=== PATIENT | female | born 1940 | race Caucasian/White ===

== ENCOUNTER 2018-06-30 06:24 | Inpatient (IN) | payer OTHER, SELFPAY ==
[2018-06-16 09:35] VITALS: BMI 29.6
[2018-06-30] VITALS (16 sets, daily range): BP systolic 102–150; BP diastolic 47–84; PULSE 51–71; RESP 14–20; TEMP 35.8–36.6; O2SAT 89–99; BMI 30.9
--- NOTE | 2018-06-30 06:00 | DI.RAD.S_ITS ---
PROCEDURE: XR PELVIS 1-2V INDICATIONS: post operative left hip TECHNIQUE: Single view(s) of the pelvis acquired. COMPARISON: None. FINDINGS: Bones: Status post left hip arthroplasty in expected postoperative alignment. Right hip arthroplasty also incidentally noted No fractures or dislocations. No suspicious bony lesions. Soft tissues: Visualized bowel gas pattern is normal. No suspicious soft tissue calcifications. Postsurgical left hip changes changes. Vascular calcifications are noted. IMPRESSION: Expected postoperative appearance of left hip arthroplasty. Dictated by: Dennis Blackwood M.D. on 06/30/2018 at 16:36 Approved by: Dennis Blackwood M.D. on 06/30/2018 at 16:37
[2018-06-30] MEDS: MELOXICAM 7.5 MG TABLET 15 MG PO (07:10)
[2018-06-30] MEDS: ACETAMINOPHEN 325 MG TABLET 975 MG PO ×3 (07:10→20:15)
[2018-06-30] MEDS: LACTATED RINGERS 1,000 ML 42 ML IV (07:15)
--- NOTE | 2018-06-30 07:57 | PM.PREOP ---
Pre-operative Note Interval Note Pre-op Check: Yes History & Physical Reviewed by Physician Changes: No
--- NOTE | 2018-06-30 08:37 | SUR.OPER ---
Lateral on padded OR bed. Gel axillary roll. Arms secured on padded armboard with pillow supporting top arm. Padded hip positioner braces x4 - anterior and posterior chest and pelvis. Additional gel pad used anterior pelvis. Gel pad under bottom leg from knee to foot and secured with tape over sheet.
[2018-06-30] MEDS: CEFAZOLIN 1 GM VIAL IV (08:46)
--- NOTE | 2018-06-30 10:06 | PM.OP.1 ---
Operative Date/Time/Diagnoses Date of procedure: 06/30/18 Time of procedure: 10:06 Pre-op diagnosis: Left hip degenerative joint disease Post-op diagnosis: same Procedure & Clinicians Procedure: Left total hip arthroplasty (CPT code 25300 with assistant secretary) Same procedure as scheduled: Yes Indications: Patient is an 78-year-old female with severe left hip DJD. The patient has pain with activities and at rest, limited ambulation and activity tolerance, difficulties with ADLs, and failure of conservative treatment. We have discussed the nature of condition, treatment options, risks and benefits, and patient elects to proceed with total hip arthroplasty and gives informed consent. Surgeon: Ajith Watters Graduate Student Instructor: Essence Briggs Anesthesia Type: General and Spinal Operative Notes Closure Type: primary Specimen(s): none sent Implants & Drains: Acetabulum: Javier [employer]hew R3 acetabular component size 52 mm Femoral component: Javier [employer]hew Synergy stem size 12 with high offset Femoral head: 36 mm + 0 cobalt chrome Estimated Blood Loss (mL): 10 Blood products transfused: none Procedure in detail: After satisfaction induction of anesthetic, and administration of IV antibiotics, the patient was positioned in the lateral decubitus position with all bony prominences well padded and pelvic position secured using a hip appliance service supervisor positioning device. Left hip and lower extremity prepped and draped in the usual sterile fashion, 1st dose of intravenous tranexamic acid was administered, then a longitudinal incision was created centered over the greater trochanter and carried sharply through the skin and subcutaneous tissues down to the fascia bess which was divided longitudinally and retracted with a Charnley retractor. External rotators visualize, cut, tagged, and retracted posteriorly, then the capsule was cut in a T-type fashion with the corners tagged and retracted. Hip was dislocated and femoral neck cut made according to preoperative templating. Acetabular retractors then placed, and the acetabular labrum and osteophytes were excised. The acetabulum was then sequentially reamed to 51 mm with an excellent circumferential ream and fit with the trial. The trial component was removed and a permanent size 52 mm Javier and Nephew R3 acetabular component was selected, positioned, and impacted with satisfactory position and fixation achieved. Permanent liner was then inserted with the elevated lip directed posteriorly. Soft tissue then removed off the lateral femoral neck in the lateral neck was entered using a box osteotome. T-handled reamers placed down the canal followed by sequential broaching to 12 with the final broach left in place for trial reduction which demonstrated good 36 leg length, range of motion, and stability characteristics with a 36 mm +0 trial ball, however far better stability was achieved with flexion adduction and rotation with a high offset trial ball/neck combination. The trial and broach were removed, and a permanent size 12 high offset Javier and Nephew Synergy stem was selected and inserted with excellent position and fixation achieved. Another trial reduction yielded the above characteristics so the trial ball was exchanged for a permanent 36 mm +0 cobalt chrome ball. The hip was irrigated and reduced and excellent leg length range of motion and stability characteristics were achieved and maintained. The hip was copiously irrigated, and the capsule repaired with #2 Ethibond, and the piriformis was repaired back to the greater trochanter with the same. Fascia bess closed with interrupted #1 Ethibond sutures, and the subcutaneous tissues were closed in 2 layers of 0 Vicryl and 2 0 Vicryl. Skin was closed with rocael and sterile dressings applied. Second dose of tranexamic acid was administered intravenously, and the anesthetic was terminated. Complications: none Condition: stable Disposition: PACU Plan for aftercare: Patient will be admitted to the acute care enriquez, and anticipate discharge on postop day 2 with follow-up in office in 10-14 days. Outpatient physical therapy will be arranged and patient will continue to observe posterior hip precautions. Patient will continue use of postoperative Lovenox for 10 days postop.
[2018-06-30] MEDS: LACTATED RINGERS 1,000 ML 125 ML IV ×2 (11:08→20:15)
--- NOTE | 2018-06-30 12:59 | PT.IPTN ---
Current Diagnoses Unilateral primary osteoarthritis, left hip (06/30/18) Surgery Performed Operation Date: 06/30/18 07:45 Actual Procedures p Total Hip Arthroplasty(Left) - Ajith Watters MD Physical Therapy Treatment Note M3 PT-IP Subjective Start: 06/30/18 12:57 Freq: NEEDED Status: Active Protocol: Document 06/30/18 12:58 RS (Rec: 06/30/18 12:59 RS [id number]) Subjective Physical Therapy Visit Type Type Administrative Note Notes Per RN, pt's leg is still not; pt not ready to participate with therapy yet.
--- NOTE | 2018-06-30 15:27 | PC.ADMIT ---
Addendum entered by Dennis Polanco R.N. 06/30/18 15:29: Pt reported mild hallucinations (spots on ceiling moving) around lunch time. She remained pleasant, not fearful, and acknowledged that this was not real. As the day has progressed- she has denied any further visual hallucinations. She has denied pain and was able to get up to bsc with physical therapist. Verbalized understanding of hip precautions. Original Note: [address] Admission Note: The patient,Gemini Nicole,78 y/o, was given written information regarding hospital policies, unit procedures and contact persons. Patient's smoking status: Never smoker. Vital Signs - 8 hr 06/30/18 09:33 06/30/18 09:39 06/30/18 09:44 Temperature 96.8 F L Pulse Rate 68 64 68 Respiratory Rate 16 15 14 Blood Pressure 105/56 L 105/64 112/57 L Pulse Oximetry 89 L 98 99 06/30/18 09:48 06/30/18 09:53 06/30/18 09:58 Temperature 96.7 F L Pulse Rate 61 62 61 Respiratory Rate 15 15 16 Blood Pressure 108/58 L 102/56 L 104/56 L Pulse Oximetry 96 99 99 06/30/18 10:03 06/30/18 10:15 06/30/18 10:41 Temperature 96.6 F L 96.5 F L Pulse Rate 64 57 L 51 L Respiratory Rate 14 20 20 Blood Pressure 107/54 L 135/47 L 112/61 Pulse Oximetry 98 94 95 06/30/18 11:15 06/30/18 12:19 06/30/18 13:15 Temperature 96.9 F L 97.2 F L 97.8 F Pulse Rate 54 L 53 L 68 Respiratory Rate 20 18 18 Blood Pressure 141/82 H 144/71 H 145/84 H Pulse Oximetry 97 94 98 Pt admitted to ICU rm 103 at 1015 via bed. VSS. Pt is sleepy but oriented x3. Reports unable to move BLE. Pulses are present, equal bilaterally and feet are warm. Oriented to room, unit, routine. Educated to pain scale, med regimen, call light, fall risk. Call light in easy reach. Family at bedside.
--- NOTE | 2018-06-30 15:34 | PT.IIE ---
Current Diagnoses Unilateral primary osteoarthritis, left hip (06/30/18) Surgery Performed Operation Date: 06/30/18 07:45 Actual Procedures p Total Hip Arthroplasty(Left) - Ajith Watters MD Surgical History (Last Updated 06/16/18 @ 10:14 by Jacqueline Pina RN) History of arthroplasty of left knee (Acute) History of total right hip arthroplasty (Acute) Hx of tonsillectomy (Acute) S/P CABG x 3 (Acute) Status post bilateral cataract extraction (Acute) Medical History (Last Updated 06/16/18 @ 10:14 by Jacqueline Pina RN) Allergic rhinitis (Acute) Arthritis of evhyaa-wktmwnksl-nbzwokvii joint (Acute) CAD (coronary artery disease) (Acute) GERD (gastroesophageal reflux disease) (Acute) Ganglion cyst of both wrists (Acute) H/O: hysterectomy (Acute) HTN (hypertension) (Acute) Hyperlipidemia (Acute) Impaired glucose tolerance (Acute) Numbness and tingling (Acute) Osteoarthritis (Acute) Palpitations (Acute) RBBB (right bundle branch block) (Acute) Rash (Acute) Renal insufficiency (Acute) Unstable angina (Acute) Physical Therapy Inpatient Evaluation/Re-Eval M1 PT/OT-IP Prior Functional Status Start: 06/30/18 12:57 Freq: NEEDED Status: Active Protocol: Document 06/30/18 14:51 AMB (Rec: 06/30/18 14:55 AMB [email or web address]) Medical Review Prior Functional Status Medical History Reviewed Yes Mobility and Gait Ambulated with SPC Social History Household Members spouse Living Arrangements House Number of Floors (Floors) One Floor Number of Stairs To Enter/Railing? 1 small step to enter Home Environment High Toilet Walk in Shower Home Equipment Front Wheel Walker Straight Cane Bedside Commode Raised Toilet Seat Without Armrests Shower Seat without Backrest Employment Status Retired Additional Social History Comment Pt has daughter who is RN who can help as well as her M2 PT-IP Current Condition Start: 06/30/18 12:57 Freq: NEEDED Status: Active Protocol: Document 06/30/18 14:51 AMB (Rec: 06/30/18 14:55 AMB [email or web address]) Physical Therapy Current Condition Current Condition Evaluation Date 06/30/18 Treatment Diagnosis s/p L MIRA Onset Date 06/30/18 Precautions Posterior Hip Precautions No Hip Flexion > 90 degrees No Hip Internal Rotation No Hip Adduction Weight Bearing Status Weight Bearing Status Weight Bear as Tolerated M3 PT-IP Subjective Start: 06/30/18 12:57 Freq: NEEDED Status: Active Protocol: Document 06/30/18 14:51 AMB (Rec: 06/30/18 14:55 AMB [email or web address]) Subjective Physical Therapy Visit Type Type Initial Evaluation Visit Start Time 14:15 Visit Stop Time 15:00 Total Visit Minutes 45 Number of TAG WRITER Visits 0 Physical Therapy Visit Comments Patient Comments Pt is ready to urinate so she would like to get out of bed. Therapy Pain Assessment Pain When Pain Assessed During Mobility Pain Present Pain Present Pain Reported Location Left Hip Intensity 5 Scale Used Numeric (1 - 10) M4 PT-IP Mobility and Gait Start: 06/30/18 12:57 Freq: NEEDED Status: Active Protocol: Document 06/30/18 15:17 AMB (Rec: 06/30/18 15:34 AMB [email or web address]) PT-Bed Mobility Assessment Rolling Type of Rolling Roll to Right Level of Assist Minimal Assistance Supine to Sit Supine to Sit Minimal Assistance Sit to Supine Sit to Supine Minimal Assistance Scooting Scooting to Edge of Bed Standby Assistance PT-Transfer Assessment Sit to and From Stand Sit to and from Stand Standby Assistance Equipment Transfer Assistive Device Gait Belt Front Wheeled Walker Transfers Transfer Destination Bed Bedside Commode Transfer Technique Stand Step Pivot Transfer Ability Level of Assist Standby Assistance Comments Mobility Comments Pt needed extensive cueing to adhere to her precautions Gait Assessment Gait Gait Assistance Required: Contact Guard Assist Distance (Feet) 80 Able to Maintain Weight Bearing Status Yes During Gait Assistive Devices Assistive Device Front Wheeled Walker Gait Deviations General Gait Pattern Antalgic Step-to Gait Comments Gait Comments Pt tolerated gait well, but needed cueing to work towards more of a step through pattern PT-Balance Assessment Sitting Balance and Reactions Static Sitting Balance Ability Good Dynamic Sitting Balance Ability Good Standing Balance and Reactions Static Standing Balance Ability Good Dynamic Standing Balance Ability Fair M5 PT-IP Objective Assessments Start: 06/30/18 12:57 Freq: NEEDED Status: Active Protocol: Document 06/30/18 15:17 AMB (Rec: 06/30/18 15:34 AMB [email or web address]) Orientation Orientation/Cognition Level of Alertness Alert Sensation Assessment Sensation Light Touch Intact M6 PT-IP Treatment Start: 06/30/18 12:57 Freq: NEEDED Status: Active Protocol: Document 06/30/18 15:17 AMB (Rec: 06/30/18 15:34 AMB [email or web address]) Physical Therapy Treatment Exercises Exercises Ankle Pumps Quad Sets Supine Hip Abduction Education Education Provided Precautions Weight Bearing Status Post-Op Packet Safety M7 PT-IP Assessment and Plan Start: 06/30/18 12:57 Freq: NEEDED Status: Active Protocol: Document 06/30/18 15:17 AMB (Rec: 06/30/18 15:34 AMB [email or web address]) PT Summary Assessment and Plan Potential Rehabilitation Potential Good Status of Condition at Evaluation Stable Summary Impairments Pain Strength Balance Bed Mobility Transfers Gait Activity Tolerance Assessment Summary The patient presents s/p L posterior approach MIRA. She lives with her and has a threshold of 2-3 inches to enter her home via her garage per her report. She had a difficult time remembering her posterior hip precautions, but tolerated gait well. She will need to work on her bed mobility to improve her independence and adhere to her precautions. Goals Bed Mobility Goal Standby Assistance Transfer Goal Standby Assistance Gait Goal Standby Assistance Gait Distance 150 Days to Meet Goals 2 Frequency of Treatment Frequency Of Treatment Twice a Day Treatment Plan Physical Therapy Treatment Plan Bed Mobility Training Transfer Training Gait Training Therapeutic Exercise Post Op Education Neuromuscular Re-ed Other Recommendations and Next Treatment Prioritize independence with Focus bed mobility, safety with precautions Recommendations To Nursing Amount of Assist Needed 1 Person Assist Discharge Recommendations PT Discharge Recommendations Home with Assistance Outpatient PT
[2018-06-30] MEDS: CEFAZOLIN 2 GM/100 ML FROZ.PIGGY IV (16:56)
[2018-06-30] MEDS: HYDROCODONE/ACET 5/325 TABLET 1 TAB PO (18:48)
[2018-06-30] MEDS: SIMVASTATIN 40 MG TABLET 80 MG PO (20:15)
[2018-06-30] MEDS: ASPIRIN EC 81 MG TABLET PO (20:15)
[2018-07-01] MEDS: CEFAZOLIN 2 GM/100 ML FROZ.PIGGY IV (00:37)
[2018-07-01] MEDS: HYDROCODONE/ACET 5/325 TABLET 1 TAB PO (00:46)
[2018-07-01 05:00] VITALS: BP 114/68; PULSE 60; RESP 18; TEMP 36.4; O2SAT 96
[2018-07-01 05:09] LABS: Hematocrit 35.1 % (36-46); Hemoglobin 11.7 g/dL (12.0-16.0)
[2018-07-01 07:15] VITALS: BP 132/64; PULSE 64; RESP 18; TEMP 36.6; O2SAT 96
[2018-07-01] MEDS: ACETAMINOPHEN 325 MG TABLET 975 MG PO (07:49)
[2018-07-01] MEDS: ENOXAPARIN 40 MG/0.4 ML SYRINGE SUBCUT (07:49)
[2018-07-01] MEDS: SODIUM CHLORIDE 0.9% FLUSH 10 ML IV (07:50)
[2018-07-01 08:39] VITALS: BP 132/64; PULSE 80
[2018-07-01] MEDS: METOPROLOL ER 25 MG TABLET PO (08:39)
[2018-07-01] MEDS: ASPIRIN EC 81 MG TABLET PO (08:40)
[2018-07-01] MEDS: hydroCHLOROthiazide 12.5 MG CAPSULE PO (08:40)
--- NOTE | 2018-07-01 09:28 | PT.IPTN ---
Current Diagnoses Unilateral primary osteoarthritis, left hip (06/30/18) Surgery Performed Operation Date: 06/30/18 07:45 Actual Procedures p Total Hip Arthroplasty(Left) - Ajith Watters MD Physical Therapy Treatment Note M2 PT-IP Current Condition Start: 06/30/18 12:57 Freq: NEEDED Status: Active Protocol: Document 07/01/18 09:16 NFW (Rec: 07/01/18 09:28 [facility] [email or web address]) Physical Therapy Current Condition Current Condition Evaluation Date 06/30/18 Treatment Diagnosis s/p L MIRA Onset Date 06/30/18 Precautions Posterior Hip Precautions No Hip Flexion > 90 degrees No Hip Internal Rotation No Hip Adduction Weight Bearing Status Weight Bearing Status Weight Bear as Tolerated M3 PT-IP Subjective Start: 06/30/18 12:57 Freq: NEEDED Status: Active Protocol: Document 07/01/18 09:16 NFW (Rec: 07/01/18 09:28 NF [email or web address]) Subjective Physical Therapy Visit Type Type Treatment Note Visit Start Time 08:30 Visit Stop Time 09:15 Total Visit Minutes 45 Number of HOTEL RESERVATION AGENT Visits 0 Physical Therapy Visit Comments Patient Comments Feeling a little dizzy. States this usually happens when she first awakens. No major complaints of pain. M4 PT-IP Mobility and Gait Start: 06/30/18 12:57 Freq: NEEDED Status: Active Protocol: Document 07/01/18 09:16 NFW (Rec: 07/01/18 09:28 [facility] [email or web address]) PT-Bed Mobility Assessment Rolling Type of Rolling Bilateral Level of Assist Independent Supine to Sit Supine to Sit Independent Sit to Supine Sit to Supine Standby Assistance Scooting Scooting to Edge of Bed Independent PT-Transfer Assessment Sit to and From Stand Sit to and from Stand Independent Equipment Transfer Assistive Device Gait Belt Front Wheeled Walker Transfers Transfer Destination Bed Chair Transfer Technique Stand Step Pivot Transfer Ability Level of Assist Standby Assistance Comments Mobility Comments Reviewed precautions prior to transfers and overall did well . Gait Assessment Gait Gait Assistance Required: Standby Assistance Distance (Feet) 250 Able to Maintain Weight Bearing Status Yes During Gait Assistive Devices Assistive Device Front Wheeled Walker Gait Deviations General Gait Pattern Antalgic Comments Gait Comments Cuing mainly for upright posture. Able to step-through during swing phase with LLE. M5 PT-IP Objective Assessments Start: 06/30/18 12:57 Freq: NEEDED Status: Active Protocol: Document 07/01/18 09:16 NFW (Rec: 07/01/18 09:28 [email or web address] [email or web address]) Orientation Orientation/Cognition Level of Alertness Alert Safety Awareness Understands Safety Issues Memory Description No Deficits Noted M6 PT-IP Treatment Start: 06/30/18 12:57 Freq: NEEDED Status: Active Protocol: Document 07/01/18 09:16 NFW (Rec: 07/01/18 09:28 [email or web address] [email or web address]) Physical Therapy Treatment Exercises Exercises Ankle Pumps Gluteal Sets Quad Sets Heel Slides Education Education Provided Precautions Weight Bearing Status Post-Op Packet Safety M7 PT-IP Assessment and Plan Start: 06/30/18 12:57 Freq: NEEDED Status: Active Protocol: Document 07/01/18 09:16 NFW (Rec: 07/01/18 09:28 [email or web address] [email or web address]) PT Summary Assessment and Plan Summary Impairments Pain Strength Balance Coordination Assessment Summary Patient understands precautions for posterior MIRA. Endurance improved to ambulation of 250'. Feels that she will not have any difficulty with crossing threshold to enter home with use of FWW and SBA of family. Treatment Plan Physical Therapy Treatment Plan Bed Mobility Training Transfer Training Gait Training Therapeutic Exercise Post Op Education Neuromuscular Re-ed Other Recommendations and Next Treatment Ready for discharge. Focus Recommendations To Nursing Amount of Assist Needed Standby Assistance Discharge Recommendations PT Discharge Recommendations Home with Assistance Outpatient PT
--- NOTE | 2018-07-01 09:32 | PM.DS.1 ---
History of Present Illness Date Patient Seen: 07/01/18 Chief complaint: [id number] Narrative: Patient seen bedside s/p L. MIRA with Dr. Watters on 06/30/18. Patient was post-op day #1. She is doing well, she is moving well with PT and her pain is well controlled with hydrocodone/APAP. She would like to go home. She denies N/V, SOB, CP, or calf pain. Discharge Providers Date of admission: 06/30/18 06:24 Consults: 06/30/18 06:00 Consult to Anesthesiology Routine Comment: Consulting Provider: Anesthesiologist Reason for consultation: Regional block for post operative pain control 06/30/18 10:41 Consult to Discharge Planning Routine Comment: Consult to Physical Therapy Evaluate & Treat Comment: Physician Instructions: post op MIRA protocol Consult to Respiratory Therapy Evaluate & Treat Comment: Physician Instructions: Evaluate and treat Discharge provider: Lupe Armenta PA-C Discharge Date: 07/01/18 Summary Discharge Diagnosis: left hip osteoarthritis Hospital Course: Patient was admitted to the hospital s/p L. MIRA with Dr. Watters on 06/30/18. She tolerated the procedure well with no major complications. She was transferred to the floor where she was seen by PT and recommended for discharge home. She was stable and ready for discharge on 07/01/18. Status at Discharge Cognitive/behavioral status at discharge: Alert & oriented x4 Functional status at discharge: uses cane/walker Overall status at discharge: patient is progressing back to baseline Time Spent with Patient Less than 30 minutes Exam Vital Signs (past 8 hours): - 07/01/18 05:00 07/01/18 07:15 07/01/18 08:39 Temperature 97.5 F L 98 F Pulse Rate 60 64 80 Respiratory Rate 18 18 Blood Pressure 114/68 132/64 132/64 Pulse Oximetry 96 96 Oxygen Delivery Method Room Air Oxygen Flow Rate 0 Narrative Exam Narrative: WDWN NAD A&OX3. Dressing CDI, NVI in LLE. ROM of foot and ankle intact. Calf soft and compressible. Objective Labs Result Diagrams: 07/01/18 04:45 Labs: Laboratory Results - last 24 hr 06/30/18 07/01/18 10:30 04:45 Hgb 11.7 L Hct 35.1 L Nasal Screen MRSA (PCR) Negative for mrsa Discharge Plan Discharge Plan Patient Disposition: Home Discharge Med Rec/Prescriptions Prescriptions: New hydrocodone-acetaminophen 5-325 mg Tablet 1 tab PO Q4HR PRN (Reason: Pain, Moderate (4-6)) Qty: 40 RF: 0 hydroxyzine pamoate 25 mg Capsule 25 mg PO Q6HR PRN (Reason: Spasms) Qty: 50 RF: 1 enoxaparin [Lovenox] 40 mg/0.4 mL Syringe 40 mg subcut DAILY 9 Days Qty: 9 RF: 0 aspirin 81 mg Tablet,Delayed Release (Dr/Ec) 81 mg PO BID Qty: 0 RF: 0 acetaminophen 325 mg Tablet 975 mg PO TID Qty: 0 RF: 0 Continue simvastatin 80 mg Tablet 80 mg PO BEDTIME RF: 0 famotidine 20 mg Tablet 20 mg PO BEDTIME RF: 0 hydrochlorothiazide 25 mg Tablet 12.5 mg PO DAILY RF: 0 metoprolol succinate 25 mg Tablet Extended Release 24 Hr 25 mg PO QAM RF: 0 Discontinued aspirin [Aspir-81] 81 mg Tablet,Delayed Release (Dr/Ec) 81 mg PO DAILY RF: 0 Provider Discharge Instructions Diet: Diet as Tolerated Activity: Weightbearing as tolerated, follow posterior hip precautions, use walker until cleared by PT Cold/Heat Therapy: Apply ice 20 minutes at a time to surgical site at least hourly while awake Skin/Wound/Dressing Care Report to your healthcare provider any signs of infection, such as:: chills, fever, night sweats, increased pain and unusual drainage Dressing: Keep dressing clean, dry, and intact Visit Report/Discharge Packet Instructions: DI for Heart Failure, DI for Hip Replacement, Enoxaparin Injection, Hydroxyzine, Hydrocodone Visit Report Forms: Congestive Heart Failure, Stroke Signs & Symptoms Discharge Data Attending Provider: Ajith Watters Admit Date/Time: 06/30/18 06:24 Discharges patient from system. Discharge Date/Time: 07/01/18 10:30 Quality VTE Deep Vein Thrombosis/Pulmonary Embolism Present on Admission: No
--- NOTE | 2018-07-01 09:45 | PC.NURSE ---
Patient has been up with PT after breakfast, ambulating steadily with walker, received scheduled Tylenol prior, rates pain 12/03. MD in to see patient, discharge orders in. Patient has put on her clothes with minimal assist, waiting for her daughter to take me home
--- NOTE | 2018-07-01 10:16 | CM.DANOTE ---
DCP : Case received, EMR reviewed and met with patient. Introduced self and role. DCP template completed with information currently available. Patient is an 78 year old female who admitted yesterday morning to the care of the hospitalist team. PCP: Dr. Caballero, in [facility]. Payer: confirmed: [employer]. Patient came to hospital for Left Total Hip Surgery. Patient stated she had been having chronic hip pain, and elected to have surgery. Patient is alert and oriented, daughter works here at hospital. Lives at home in [place] with her spouse. Patient was hoping to go home today. P: DCP to continue to follow, and patient will be working with physical therapy. Patient wishes to go home with outpatient physical therapy. Sosa Pascual RN/Ems Educator
== END 2018-07-01 10:30 | disposition home or self-care (01) | DRG 470 ==
LOC: AC 08:29 → ICU 14:41
PROVIDERS: Admitting Provider Orthopaedic Surgery; Visit Provider Orthopaedic Surgery
PROC: 0SRB0JZ Replacement of Left Hip Joint with Synthetic Substitute, Open Approach (ICD-10-PCS; CPT 27130; principal; 2018-06-30 07:45)
DX: M16.12 Unilateral primary osteoarthritis, left hip (principal); I10 Essential (primary) hypertension; E78.5 Hyperlipidemia, unspecified; K21.9 Gastro-esophageal reflux disease without esophagitis; I25.10 Atherosclerotic heart disease of native coronary artery without angina pectoris; M70.62 Trochanteric bursitis, left hip; Z95.1 Presence of aortocoronary bypass graft
CPT/HCPCS: 36415; 72170; 73502; 85014; 85018; 87797; 97110; 97116; 97161; 97530; C1776; J0690; J1100; J1650; J2704

== ENCOUNTER → 2020-01-25 14:26 | Outpatient (CLI) | payer OTHER, SELFPAY ==
[2018-06-30 10:30] VITALS: BMI 30.9
[2020-01-26 13:11] LABS: COVID19 Sendout Not Detected (Not Detect)
== END ==
PROVIDERS: Visit Provider Registered Nurse
DX: Z01.812 Encounter for preprocedural laboratory examination (principal)
CPT/HCPCS: 87635

== ENCOUNTER 2020-01-27 10:03 | Day surgery (SDC) | payer OTHER, SELFPAY ==
[2018-06-30 10:30] VITALS: BMI 30.9
[2020-01-25 08:47] VITALS: BMI 26.9
[2020-01-27] VITALS (14 sets, daily range): BP systolic 115–172; BP diastolic 61–82; PULSE 49–67; RESP 13–22; TEMP 36–36.8; O2SAT 93–99; BMI 26.9
--- NOTE | 2020-01-27 06:00 | DI.RAD.S_ITS ---
PROCEDURE: XR KNEE RT 1TO2V INDICATIONS: total right knee TECHNIQUE: 2 view(s) of the knee acquired. [facility] KNEE ARTHRITIC SERIES RT, 10/08/2019, 10:18. FINDINGS: Bones: Patient is status post knee joint arthroplasty. Hardware components are in expected positions. Visualized bony structures are intact. Soft tissues: Overlying postoperative changes are noted. IMPRESSION: Expected postsurgical change for right knee arthroplasty. Dictated by: Neetu Saldana MD, PhD on 01/27/2020 at 16:40 Approved by: Neetu Saldana MD, PhD on 01/27/2020 at 16:41
[2020-01-27] MEDS: LACTATED RINGERS 1,000 ML 42 ML IV (10:22)
[2020-01-27] MEDS: CELECOXIB 200 MG CAPSULE PO (10:23)
[2020-01-27] MEDS: ACETAMINOPHEN 325 MG TABLET 975 MG PO (10:23)
[2020-01-27] MEDS: PREGABALIN 75 MG CAPSULE PO (10:23)
--- NOTE | 2020-01-27 12:33 | SUR.PREOP ---
Assisted patient to bathroom to void. Complains of slight dizziness but states that she has episodes of dizziness after sitting too long. Recheck of vital signs are stable. Warm blankets provided. Awaiting surgical procedure.
--- NOTE | 2020-01-27 12:51 | PM.PREOP ---
Pre-operative Note COVID-19 COVID-19 status: Negative Result date/Date tested (Pos, Neg/Pending): 01/25/20 Interval Note History & Physical reviewed/Exam performed by Physician: Yes Changes to H&P: No
--- NOTE | 2020-01-27 12:54 | P.OP_ITS ---
Operative Date/Time/Diagnoses Date of procedure: 01/27/20 Time of procedure: 15:16 Pre-op diagnosis: Right knee arthritis Post-op diagnosis: same Procedure & Clinicians Procedure: Right total knee arthroplasty Same procedure as scheduled: Yes Indications: The patient presents today for total knee arthroplasty after failure of conservative treatment. The nature of the procedure including the risks and benefits, alternatives, postoperative course and expected outcome were discussed and all questions answered. Consent was obtained. Operative site confirmed and marked. Surgeon: Wesly Serna [employer] Man: Nelida Escamilla Anesthesia Type: General, Spinal and Local Operative Notes Findings: There is severe valgus with a 15 degree flexion contracture. A +4 distal femoral cut was made. The knee balanced well with this mild release of the lateral capsular structures. Patellar tracking was excellent. Closure Type: primary Specimen(s): none sent Prosthetic devices, grafts, tissues, transplants, or devices: Radames Persona TKA CR femoral component, stemmed tibial component, 10 medially constrained polyethylene tray and 32 mm all poly patella. Applied: implant(s) Estimated Blood Loss (mL): 10 Blood products transfused: none Tourniquet time (min): 58 Procedure in detail: The patient was taken to the operative suite and placed under anesthesia. The patient was given prophylactic antibiotics prior to surgery. [The patient was also given tranexamic acid, 1 g, just prior to surgery for postoperative hemostasis.] The lateral knee was prepped and the joint injected with 20 mL of 1% Lidocaine with epinephrine. The knee was then prepped and draped in usual sterile fashion. The leg was exsanguinated with an Esmarch dressing and the tourniquet raised to [250] torr. A 15 cm anterior incision was made. Next a medial trivector arthrotomy was made. The extensor mechanism was marked to ensure accurate repair. Initial exposing dissection was carried out medially and laterally. The knee was then flexed and the intramedullary femoral guide rubens placed. The distal femoral cut was made in 5 ? of valgus at the + 4 position. The femoral size was measured and the appropriate cutting block was then placed and the anterior, posterior and chamfer cuts made. The intramedullary tibial alignment rubens was then placed. The guide was set to remove approximately 8 mm from the less affected medial side. The proximal tibial cut was then made with an oscillating saw. All meniscus and bony debris was then removed. Posterior femoral osteophytes removed with a curved osteotome. Flexion extension gaps were checked. There was mild tightness laterally in extension. This was corrected releasing the lateral structures with a 15 blade with a pie crust technique. The soft tissues were then injected with a combination of 20 mL of half percent Marcaine with epinephrine and 20 mL of Exparel. The trial components were then placed. The knee was then extended and the patellar thickness was measured and a cut made removing approximately [9] mm of bone. The patella was then sized and drilled. Some excess lateral bone was excised and the patellofemoral ligament released. [The knee went into full extension and flexion beyond 130?]. There was [excellent] medial-lateral balance throughout motion. Patellar tracking was [excellent]. The trial components were removed and the knee was cleansed with Pulsavac irrigation and dried. The final components were cemented with high viscosity vacuum mixed bone cement with antibiotics. The joint was filled with a dilute Betadine solution. The knee was held in extension and the patellar clamped until the cement was adequately cured. The knee was then irrigated. The extensor mechanism was closed with 5 interrupted #1 Vicryl sutures and a running Quill suture at approximately 90 degrees of flexion. The joint was then injected with a combination of 1 g of tranexamic acid and 20 mL of quarter percent Marcaine with epinephrine. The subcutaneous tissue was closed with 2 0 Vicryl. The skin was closed with rocael and surgical adhesive. An [Aquacel dressing] and Jose G wrap were then applied. The patient tolerated the procedure well and was returned to recovery room in good condition. Complications: none Post-operative Condition: stable Disposition: PACU Plan for aftercare: [facility] protocol.
[2020-01-27] MEDS: CEFAZOLIN 2 GM/100 ML FROZ.PIGGY IV (13:29)
--- NOTE | 2020-01-27 14:09 | SUR.OPER ---
Supine on padded OR bed, head on pillow, arms secured on padded arm boards at <90 degrees abduction, legs uncrossed, safety belt at abdomen, tape over blanket over left lower leg. right leg draped in sterile field
[2020-01-27] MEDS: BUPIVACAINE 0.25% W/ EPI (PF) 40 ML, BUPIVACAINE LIPOSOME 266 MG, SODIUM CHLORIDE 0.9% ... INJ (14:25)
[2020-01-27] MEDS: BUPIVACAINE 0.25% W/ EPI (PF) 20 ML, TRANEXAMIC ACID 1,000 MG, SODIUM CHLORIDE 0.9% 10 ML INJ (14:26)
[2020-01-27] MEDS: LIDOCAINE 1% W/EPI 20 ML INJ (14:29)
[2020-01-27] MEDS: SODIUM CHLORIDE IRRIG SOLUTION 250 ML, POVIDONE-IODINE SPONGE STICKS 1 APPLIC IRR (14:38)
--- NOTE | 2020-01-27 16:24 | SUR.PHASEI ---
Patient taken to room 226. Left in good condition with receiving RN at bedside
[2020-01-27] MEDS: LACTATED RINGERS 1,000 ML 100 ML IV (17:12)
[2020-01-27] MEDS: IBUPROFEN 400 MG TABLET PO ×2 (17:13→21:46)
[2020-01-27] MEDS: hydrOXYzine pamoate 25 MG CAPSULE PO (18:14)
[2020-01-27] MEDS: OXYCODONE IR 10 MG TABLET PO (18:14)
[2020-01-27] MEDS: ACETAMINOPHEN 325 MG TABLET 650 MG PO (21:44)
[2020-01-27] MEDS: ASPIRIN EC 81 MG TABLET PO (21:45)
[2020-01-27] MEDS: DOCUSATE 100 MG CAPSULE PO (21:45)
[2020-01-28 01:00] VITALS: BP 169/79; PULSE 52; RESP 15; TEMP 36.1; O2SAT 99
--- NOTE | 2020-01-28 01:47 | PC.NURSE ---
Addendum entered by Rocio Umanzor R.N. 01/28/20 06:25: Patient spoke to daughter this AM after Coordinator located working phone number. Addendum entered by Rocio Umanzor R.N. 01/28/20 05:44: Notified Coordinator of patient's adamant refusal to use call light, wait for assistance, and use walker to ambulate. Patient has been up about every hour to use BSC. Staff is usually notified via bed alarm and find patient at the end of the bed with legs dangling. Coordinator advised this RN to attempt to contact family, number for daughter is not in service and spouse's number goes straight to voicemail. Continue to use most sensitive bed alarm, patient in view room. Addendum entered by Rocio Umanzor R.N. 01/28/20 03:43: Continues to not use call light and attempts to exit bed. Does not understand limitations r/t recent surgery and joint replacement stating I can get out of bed by myself! Notified Coordinator of patient safety issue related to increase fall risk. Continue to reorient and call light education. Bed alarm on most sensitive setting but patient is quick with movement. Original Note: Shift note: AxOx3, can make needs known but demonstrates some forgetfulness and impulsiveness. Attempted to get out of bed without calling for assistance reported that she lost her call light that was in bed with her and dropped the other one which was her NC tubing. Given directions to move cautiously and wait for assistance but is insistent that she needs to use BSC immediately. Will re-educated applications engineer manufacturing light and set bed alarm to most sensitive setting. Denies SOB. Requiring supplemental oxygen when sleeping with sedating medications and mouth breathing. CMS positive in right leg, aquacell is CDI covered by dima wrap. High fall risk, bed alarm on and functioning, call light in reach.
[2020-01-28] MEDS: LACTATED RINGERS 1,000 ML 100 ML IV (03:12)
[2020-01-28 04:29] VITALS: BP 160/73; PULSE 52; RESP 15; TEMP 36.3; O2SAT 99
[2020-01-28] MEDS: IBUPROFEN 400 MG TABLET PO ×2 (04:39→08:14)
[2020-01-28 05:04] LABS: Hematocrit 43.3 % (36-46); Hemoglobin 14.9 g/dL (12.0-16.0)
[2020-01-28] MEDS: OXYCODONE IR 10 MG TABLET PO ×2 (06:20→12:36)
--- NOTE | 2020-01-28 07:36 | PM.PNPO.1 ---
Subjective Subjective Date Patient Seen: 01/28/20 Time Patient Seen: 07:36 Interval history: The patient reports she is doing well today. Her pain has been well controlled. No other complaints period Exam Vital Signs (past 8 hours): - 01/28/20 01:00 01/28/20 04:29 Temperature 97.0 F L 97.4 F L Pulse Rate 52 L 52 L Respiratory Rate 15 15 Blood Pressure 169/79 H 160/73 H Pulse Oximetry 99 99 Oxygen Delivery Method Nasal Cannula Oxygen Flow Rate 1.5 Narrative Exam Narrative: The dressing is clean and dry. Expected swelling. There is a dense footdrop today. Objective Labs Result Diagrams: 01/28/20 04:43 Labs: Laboratory Results - last 24 hr 01/28/20 04:43 Hgb 14.9 Hct 43.3 Assessment & Plan Post-op Postoperative Procedures: Procedures Operation Date: 01/27/20 12:15 Actual Procedures Side Surgeon p Total Knee Arthroplasty Right Wesly Serna MD Postoperative status narrative: Postop day 1. Right total knee arthroplasty. The patient is doing well overall but does have a footdrop. This is most likely due to the Exparel and her lateral release. This should resolve over the next 1-2 days. She may progress with physical therapy. A temporary AFO could be considered if needed. She may discharge to home today if she does well with therapy.
[2020-01-28 08:05] VITALS: BP 144/65; PULSE 58; RESP 16; TEMP 36.8; O2SAT 97
[2020-01-28] MEDS: DOCUSATE 100 MG CAPSULE PO (08:13)
[2020-01-28 08:14] VITALS: BP 144/85; PULSE 88
[2020-01-28] MEDS: ACETAMINOPHEN 325 MG TABLET 650 MG PO (08:14)
[2020-01-28] MEDS: METOPROLOL ER 25 MG TABLET PO (08:14)
[2020-01-28] MEDS: ASPIRIN EC 81 MG TABLET PO (08:14)
[2020-01-28] MEDS: hydroCHLOROthiazide 25 MG TABLET 12.5 MG PO (08:15)
--- NOTE | 2020-01-28 09:26 | PT.IIE ---
Current Diagnoses Unilateral primary osteoarthritis, right knee (01/27/20) Surgery Performed Operation Date: 01/27/20 12:15 Actual Procedures p Total Knee Arthroplasty(Right) - Wesly Serna MD Surgical History (Last Updated 06/16/18 @ 10:14 by Jacqueline Pina RN) H/O: hysterectomy (Acute) History of arthroplasty of left knee (Acute) History of total right hip arthroplasty (Acute) Hx of tonsillectomy (Acute) S/P CABG x 3 (Acute) Status post bilateral cataract extraction (Acute) Medical History (Last Updated 06/16/18 @ 10:14 by Jacqueline Pina RN) Allergic rhinitis (Acute) Arthritis of cgeqtn-skrmyxexz-pvepkrgrs joint (Acute) CAD (coronary artery disease) (Acute) Ganglion cyst of both wrists (Acute) GERD (gastroesophageal reflux disease) (Acute) HTN (hypertension) (Acute) Hyperlipidemia (Acute) Impaired glucose tolerance (Acute) Numbness and tingling (Acute) Osteoarthritis (Acute) Palpitations (Acute) Rash (Acute) RBBB (right bundle branch block) (Acute) Renal insufficiency (Acute) Unstable angina (Acute) Physical Therapy Inpatient Evaluation/Re-Eval M1 PT/OT-IP Prior Functional Status Start: 01/28/20 12:44 Freq: NEEDED Status: Active Protocol: Document 01/28/20 09:26 AB (Rec: 01/28/20 13:07 AB [id number]) Medical Review Prior Functional Status Medical History Reviewed Yes Communication able to make needs known Mobility and Gait pt stated that she is independent with all mobilities and ambulation without AD but occasionally uses a SPC depending on knee pain. stated that she takes care of her spouse who is blind Social History Household Members spouse Living Arrangements House Number of Floors (Floors) One Floor Number of Stairs To Enter/Railing? 1 step to enter Home Environment Walk in Shower Home Equipment Front Wheel Walker,Bedside Commode,Shower Seat with Backrest,Hand Held Shower,Grab Bars In Shower M2 PT-IP Current Condition Start: 01/28/20 12:44 Freq: NEEDED Status: Active Protocol: Document 01/28/20 09:26 AB (Rec: 01/28/20 13:07 AB [id number]) Physical Therapy Current Condition Current Condition Evaluation Date 01/28/20 Treatment Diagnosis s/p R TKA; difficulty in walking Onset Date 01/27/20 Weight Bearing Status Weight Bearing Status Weight Bear as Tolerated Allowed Weight Bearing Amount (enter % RLE WBAT or #) (%) M3 PT-IP Subjective Start: 01/28/20 12:44 Freq: NEEDED Status: Active Protocol: Document 01/28/20 09:26 AB (Rec: 01/28/20 13:07 [id number]) Subjective Physical Therapy Visit Type Type Initial Evaluation Visit Start Time 09:26 Visit Stop Time 10:23 Total Visit Minutes 57 Number of EAR MUFF ASSEMBLER Visits 0 Physical Therapy Visit Comments Patient Comments pt is agreeable to do PT Therapy Pain Assessment Pain When Pain Assessed At Rest Pain Present Pain Present Pain Reported Location Right Knee Intensity 4 Scale Used Numeric (1 - 10) Pain Management Techniques Modification of Treatment,Re- positioning,Timing of Activity with Medications M4 PT-IP Mobility and Gait Start: 01/28/20 12:44 Freq: NEEDED Status: Active Protocol: Document 01/28/20 09:26 AB (Rec: 01/28/20 13:07 [id number]) PT-Bed Mobility Assessment Supine to Sit Supine to Sit Standby Assistance Sit to Supine Sit to Supine Standby Assistance Scooting Scooting to Edge of Bed Standby Assistance PT-Transfer Assessment Sit to and From Stand Sit to and from Stand Contact Guard Assistance,1 Person Assistance,Use of Upper Extremities Equipment Transfer Assistive Device Gait Belt,Front Wheeled Walker Orthotic/Prosthetic Devices or Brace: No Transfers Transfer Destination Bed Transfer Technique Stand Step Pivot Comments Mobility Comments pt sitting on chair. pt has memory issues and has decrease safety awareness. pt completed sit to stand CGA and completed transfer to bed using FWW. completed bed mobility supine<>sit SBA. pt ambulated in room ~ 40 ft CGA using FWW. pt has decrease cognitive level and motor planning and requires cues with all tasks. pt ambulated in the hallway using FWW CGA ~ 150 ft and cues. assisted towards the stairs and completed up/down platform step using FWW with max cues. assisted pt back to room. pt ambulated from w/c to chair using FWW CGA. positioned on chair. informed pt that caregiver training needs to be completed prior to going home and pt agreed. stated that her daughter will come in. set pt on chair with call light and table placed within reach. informed nurse regarding pt's mobility and caregiver training needed prior to d/c. Gait Assessment Gait Gait Assistance Required: Contact Guard Assist Distance (Feet) 150 Able to Maintain Weight Bearing Status Yes During Gait Assistive Devices Assistive Device Gait Belt,Front Wheeled Walker Orthotic/Prosthetic Devices or Brace: No Gait Deviations General Gait Pattern Antalgic,Decreased Stride Length,Decreased Feet Clearance,Step-to Gait Factors Limiting Gait Function Factors Limiting Gait Function Decreased Activity Tolerance, Decreased Strength,Limited Range of Motion,Pain,Poor Balance,Poor Safety Awareness Stair Climbing Assessment Evaluation Level of Assist On Stairs Minimal Assistance Devices Stair Climbing Assistive Devices Front Wheel Walker Technique/Endurance Stair Climbing Direction Ascend and Descend Stair Climbing Technique Step to Step Number of Steps Climbed 1 Query Text: Stair Climbing Set # Repetitions (reps) 6 Comments Stair Climbing Comments up/down platform step using FWW with max cues and min A PT-Balance Assessment Sitting Balance and Reactions Static Sitting Balance Ability Good Dynamic Sitting Balance Ability Good Standing Balance and Reactions Static Standing Balance Ability Fair Dynamic Standing Balance Ability Fair Device Used FWW M5 PT-IP Objective Assessments Start: 01/28/20 12:44 Freq: NEEDED Status: Active Protocol: Document 01/28/20 09:26 AB (Rec: 01/28/20 13:07 AB [id number]) Orientation Orientation/Cognition Level of Alertness Alert Orientation Name,Birthday Safety Awareness Decreased Safety Awareness Memory Description Short Term Impaired,Alf Impaired Gross Range of Motion Lower Extremity ROM Assessment Within Functional Limits Strength Lower Extremity Strength Assessment Right Impaired Hip 4-/5 Knee 3+/5 Ankle 1+/5 Comments Strength Comments R foot drop Coordination Assessment Gross Coordination Gross Coordination WNL M6 PT-IP Treatment Start: 01/28/20 12:44 Freq: NEEDED Status: Active Protocol: Document 01/28/20 09:26 AB (Rec: 01/28/20 13:07 AB [id number]) Physical Therapy Treatment Education Education Provided Precautions,Weight Bearing Status,Post-Op Packet,Safety M7 PT-IP Assessment and Plan Start: 01/28/20 12:44 Freq: NEEDED Status: Active Protocol: Document 01/28/20 09:26 AB (Rec: 01/28/20 13:07 AB [id number]) PT Summary Assessment and Plan Potential Rehabilitation Potential Fair Status of Condition at Evaluation Evolving Summary Impairments Pain,ROM,Strength,Balance, Coordination,Sensation,Tone, Cognition,Bed Mobility, Transfers,Gait,Activity Tolerance Assessment Summary pt requiring CGA to min A with mobility and max cues with all tasks. pt plans to go home and has a caregiver that can come in to assist but will not be in there 18/03. caregiver training will be conducted with daughter later today and will inform regarding more assistance needed for safe d/c home. d/c plan depending on progress and available assistance at home. Goals Bed Mobility Goal Independent Transfer Goal Independent,Front Wheeled Walker Gait Goal Independent,Front Wheel Walker Gait Distance 200 Other Goals up/down 1 step using FWW SBA Days to Meet Goals 5 Frequency of Treatment Frequency Of Treatment Twice a Day Treatment Plan Physical Therapy Treatment Plan Bed Mobility Training,Transfer Training,Gait Training, Therapeutic Exercise,Balance Retraining,Post Op Education, Discharge Planning,Hot or Cold Pack,Neuromuscular Re-ed, Coordination Retraining,Manual Therapy Recommendations To Nursing Amount of Assist Needed 1 Person Assist Discharge Recommendations PT Discharge Recommendations Home with 18/03 Assist,SNF Rehab,Outpatient PT Other Discharge Recommendations SNF vs home with assist and outpt PT Transportation Needs at Discharge Private Vehicle
[2020-01-28 11:40] VITALS: BP 86/47; PULSE 58; RESP 17; TEMP 36.4; O2SAT 98
[2020-01-28 12:03] VITALS: BP 106/60
--- NOTE | 2020-01-28 12:27 | PC.NURSE ---
Addendum entered by Jaquelin Rowell R.N. 01/28/20 13:02: Able to do much better on care givertraining this afternoon. Belen will be with patient remainder of day until caregiver arrives. IV removed, d/c teaching completed. Recomendation for 5mg of oxycodone at home if needed, r/t confusion with 10mg dosing. D/c to private vehicle. Original Note: Am shift Pt is quite impulsive, not using call light for assist, multiple attempts to get to BR on own. Forgetful, but cooperative with most care. PT up with Pt and requested caregiver training with family.Spoke with Daughter Belen, and she will be in soon. Reports 10 hours of overnight caregiving at home, but daughter will be at home all day with Patient, and caregiver is there overnight. Family is also 5 min away. Await caregiver training. Plan for d/c later today.
--- NOTE | 2020-01-28 12:50 | PT.IPTN ---
Current Diagnoses Unilateral primary osteoarthritis, right knee (01/27/20) Surgery Performed Operation Date: 01/27/20 12:15 Actual Procedures p Total Knee Arthroplasty(Right) - Wesly Serna MD Physical Therapy Treatment Note M2 PT-IP Current Condition Start: 01/28/20 12:44 Freq: NEEDED Status: Discharge Protocol: Document 01/28/20 09:26 AB (Rec: 01/28/20 13:07 AB [id number]) Physical Therapy Current Condition Current Condition Evaluation Date 01/28/20 Treatment Diagnosis s/p R TKA; difficulty in walking Onset Date 01/27/20 Weight Bearing Status Weight Bearing Status Weight Bear as Tolerated Allowed Weight Bearing Amount (enter % RLE WBAT or #) (%) M3 PT-IP Subjective Start: 01/28/20 12:44 Freq: NEEDED Status: Discharge Protocol: Document 01/28/20 12:35 SP (Rec: 01/28/20 15:03 SP [id number]) Subjective Physical Therapy Visit Type Type Treatment Note Visit Start Time 12:35 Visit Stop Time 12:50 Total Visit Minutes 25 Notes Caregiver training completed with daughter. Number of STEP FINISHER Visits 1 Physical Therapy Visit Comments Patient Comments pt agreeable to PT Therapy Pain Assessment Pain Present Pain Present Denied Pain M4 PT-IP Mobility and Gait Start: 01/28/20 12:44 Freq: NEEDED Status: Discharge Protocol: Document 01/28/20 12:35 SP (Rec: 01/28/20 15:03 SP [id number]) PT-Transfer Assessment Sit to and From Stand Sit to and from Stand Contact Guard Assistance,1 Person Assistance,Use of Upper Extremities Equipment Transfer Assistive Device Gait Belt,Front Wheeled Walker Orthotic/Prosthetic Devices or Brace: No Transfers Transfer Destination Chair,Wheelchair Transfer Technique pt ambulated using FWW Transfer Ability Level of Assist Contact Guard Assistance,Use of Upper Extremities Comments Mobility Comments Daughter in room when arrived, completed caregiver training with patient included donning gait belt, CGA during Sit to stand, and cuing patient safety hand placement and FWW repositioning. Pt was able to ambulate further distance into hallway with Mod cuing for directioning and obstacle mgt to platform step, complete with daughter CGA and safety assist of FWW repositioning on step and LE step to patterning LLE ascend, RLE lead descending and cuing for keeping FWW in front and not pushing off to side for self support required durign RLE WB and LLE advancement needed. Pt sat in w/c in room per nursing request to prep for DC . Pt is ok to go home with cargiver and family (daughter and son) additional 24/7 assist at this time when medically cleared. Pt's daughter was able to acquire a FWW for patient to use at home. Gait Assessment Gait Gait Assistance Required: Contact Guard Assist Distance (Feet) 100 Able to Maintain Weight Bearing Status Yes During Gait Assistive Devices Assistive Device Gait Belt,Front Wheeled Walker Orthotic/Prosthetic Devices or Brace: No Gait Deviations General Gait Pattern Antalgic,Decreased Stride Length,Decreased Feet Clearance,Step-to Gait Factors Limiting Gait Function Factors Limiting Gait Function Decreased Activity Tolerance, Decreased Strength,Limited Range of Motion,Pain,Poor Balance,Poor Safety Awareness Comments Gait Comments step to gait demonstrated using FWW CGA, see further comments in mobility section. Stair Climbing Assessment Evaluation Level of Assist On Stairs Contact Guard Assistance,1 Person Assistance Devices Stair Climbing Assistive Devices Front Wheel Walker Technique/Endurance Stair Climbing Direction Ascend and Descend Stair Climbing Technique Step to Step Number of Steps Climbed 1 Stair Climbing Set # Repetitions (reps) 1 Comments Stair Climbing Comments up/down platform step using FWW with max cues and CGA provided by daughter and support for safety positioning of FWW and LE patterning. PT-Balance Assessment Sitting Balance and Reactions Static Sitting Balance Ability Good Dynamic Sitting Balance Ability Good Standing Balance and Reactions Static Standing Balance Ability Fair Dynamic Standing Balance Ability Fair Device Used FWW M5 PT-IP Objective Assessments Start: 01/28/20 12:44 Freq: NEEDED Status: Discharge Protocol: Document 01/28/20 09:26 AB (Rec: 01/28/20 13:07 AB [id number]) Orientation Orientation/Cognition Level of Alertness Alert Orientation Name,Birthday Safety Awareness Decreased Safety Awareness Memory Description Short Term Impaired,Mcfp Impaired Gross Range of Motion Lower Extremity ROM Assessment Within Functional Limits Strength Lower Extremity Strength Assessment Right Impaired Hip 4-/5 Knee 3+/5 Ankle 1+/5 Comments Strength Comments R foot drop Coordination Assessment Gross Coordination Gross Coordination WNL M6 PT-IP Treatment Start: 01/28/20 12:44 Freq: NEEDED Status: Discharge Protocol: Document 01/28/20 12:35 SP (Rec: 06/04/20 15:03 SP [id number]) Physical Therapy Treatment Education Education Provided Precautions,Safety M7 PT-IP Assessment and Plan Start: 01/28/20 12:44 Freq: NEEDED Status: Discharge Protocol: Document 01/28/20 12:35 SP (Rec: 01/28/20 15:03 SP [id number]) PT Summary Assessment and Plan Potential Rehabilitation Potential Fair Status of Condition at Evaluation Evolving Summary Impairments Pain,ROM,Strength,Balance, Coordination,Sensation,Tone, Cognition,Bed Mobility, Transfers,Gait,Activity Tolerance Assessment Summary pt requiring CGA A during all mobility and max cues with all tasks. pt is able to go home, has a caregiver that comes in 10 hrs/ day M-F with family providing 24/7 assist for needs when medically stable. STEP FINISHER recommending out patient PT to improve strength , balance, safety techniques while using FWW. Goals Bed Mobility Goal Independent Transfer Goal Independent,Front Wheeled Walker Gait Goal Independent,Front Wheel Walker Gait Distance 200 Other Goals up/down 1 step using FWW SBA Days to Meet Goals 5 Frequency of Treatment Frequency Of Treatment Twice a Day Treatment Plan Physical Therapy Treatment Plan Bed Mobility Training,Transfer Training,Gait Training, Therapeutic Exercise,Balance Retraining,Post Op Education, Discharge Planning,Hot or Cold Pack,Neuromuscular Re-ed, Coordination Retraining,Manual Therapy Other Recommendations and Next Treatment gait using FWW further Focus distances, LE strengthening, tranfers. Recommendations To Nursing Amount of Assist Needed 1 Person Assist Discharge Recommendations PT Discharge Recommendations Home with 24/7 Assist, Outpatient PT Other Discharge Recommendations home with assist and outpt PT Transportation Needs at Discharge Private Vehicle
--- NOTE | 2020-01-28 15:16 | CM.IDA ---
Initial DCP Assessment Note: Pt is an 79 yo female, resident of [place], now POD#1 from Rt knee surgery w/ Dr Serna PCP: Saba Hendrix Payer: Arun REED Reviewed chart, pt discussed in multidisciplinary rounds this morning. Therapy has cleared pt for return home w/family to assist and pt has planned for home, DC order from Ortho has already been initiated this morning. No needs expected from DC planning team although will remain available in case this changes today. EILEEN Araujo
== END 2020-01-28 13:21 | disposition home or self-care (01) ==
LOC: OR 10:05 → AC 10:06 → ICU 15:24
PROVIDERS: Referring Provider Orthopaedic Surgery; Visit Provider Orthopaedic Surgery
PROC: 0SRC0JZ Replacement of Right Knee Joint with Synthetic Substitute, Open Approach (ICD-10-PCS; CPT 27447; principal; 2020-01-27 12:15)
DX: M17.11 Unilateral primary osteoarthritis, right knee (principal); M21.061 Valgus deformity, not elsewhere classified, right knee; K21.9 Gastro-esophageal reflux disease without esophagitis; I45.10 Unspecified right bundle-branch block; I10 Essential (primary) hypertension
CPT/HCPCS: 27447; 36415; 73560; 85014; 85018; 97116; 97162; 97530; C1776; C9290; J0690; J1100; J2250; J2405; J2704; J3010